=== PATIENT | male | born 1935 ===

== ENCOUNTER 2017-09-03 16:17 | Emergency (ER) | payer MEDICARE, OTHER ==
[2017-09-03] MEDS ORDERED: Albuterol 0.083% Inhal Sol (2.5 mg/3 mL) UD INH ONE (17:32)
--- NOTE | 2017-09-03 17:42 | ED PDOC ---
HPI: General Adult Time Seen by Provider: 09/03/17 16:40 Chief Complaint (Nursing): Chest Pain Chief Complaint (Provider): Dry Cough History Per: Patient History/Exam Limitations: no limitations Onset/Duration Of Symptoms: Days (x2 weeks) Current Symptoms Are (Timing): Still Present Additional Complaint(s): 81 year old male with a past medical history of diabetes, HTN, and hypercholesterolemia, who presents to the ED complaining of dry cough, body aches, and fever x2 weeks. Patient is also complaining of diarrhea x3 days. States he was seen by his PMD Dr. Meléndez on 09/01/17 and was diagnosed with bronchitis. Also states he was given prescriptions for Phenergan, Z-Zion, and Prednisone, but his cough is still present. PMD: Dr. Shaik Meléndez Past Medical History Reviewed: Historical Data, Nursing Documentation, Vital Signs Vital Signs: Last Vital Signs Temp 98.0 F 09/03/17 19:19 Pulse 71 09/03/17 19:19 Resp 21 09/03/17 19:19 BP 129/74 09/03/17 19:19 Pulse Ox 100 09/03/17 19:50 - Medical History PMH: Asthma, Bronchitis, COPD, HTN, Hypercholesterolemia, Peripheral Edema ( bilateral pedal and ankle edema), Pneumonia Denies: HIV (denies), Chronic Kidney Disease - Surgical History Surgical History: Cholecystectomy - Family History Family History: States: Unknown Family Hx - Social History Ex-Smoker (has not smoked in the last 12 months): Yes Alcohol: None Drugs: Denies - Home Medications Home Medications: Ambulatory Orders Medication Instructions Recorded Azithromycin [Zithromax] 250 mg PO DAILY #6 tab 06/15/16 Cholecalciferol (Vitamin D3) 50,000 unit PO QWK 06/15/16 [Vitamin D3] Fenofibrate,Micronized [Lofibra] 134 mg PO DAILY 06/15/16 Furosemide [Lasix] 40 mg PO DAILY 06/15/16 Losartan Potassium [Cozaar] 100 mg PO DAILY 06/15/16 MetFORMIN [glucOPHAGE] 1,000 mg PO BID 06/15/16 Montelukast [Singulair] 10 mg PO DAILY 06/15/16 Nebivolol [Bystolic] 10 mg PO DAILY 06/15/16 Pantoprazole Sodium [Protonix] 40 mg PO DAILY 06/15/16 Simvastatin [Zocor] 40 mg PO DAILY 06/15/16 Tamsulosin [Flomax] 0.4 mg PO DAILY 06/15/16 Albuterol HFA [Ventolin HFA 90 1 - 2 puff IH Q4H PRN #1 bottle 09/03/17 mcg/actuation (8 g)] - Allergies Allergies/Adverse Reactions: Allergies Allergy/AdvReac Type Severity Reaction Status Date / Time No Known Allergies Allergy Verified 09/03/17 16:30 Review of Systems ROS Statement: Except As Marked, All Systems Reviewed And Found Negative Constitutional: Positive for: Fever, Other (body aches) Respiratory: Positive for: Cough Physical Exam - Reviewed Nursing Documentation Reviewed: Yes Vital Signs Reviewed: Yes - Physical Exam Appears: Positive for: Non-toxic, No Acute Distress Head Exam: Positive for: ATRAUMATIC, NORMAL INSPECTION, NORMOCEPHALIC Skin: Positive for: Normal Color, Warm, Dry. Negative for: Rash Eye Exam: Positive for: EOMI, Normal appearance, PERRL ENT: Positive for: Normal ENT Inspection Neck: Positive for: Normal, Painless ROM, Supple Cardiovascular/Chest: Positive for: Regular Rate, Rhythm. Negative for: Murmur Respiratory: Positive for: Normal Breath Sounds. Negative for: Respiratory Distress Gastrointestinal/Abdominal: Positive for: Normal Exam, Bowel Sounds, Soft. Negative for: Tenderness Back: Positive for: Normal Inspection. Negative for: L CVA Tenderness, R CVA Tenderness, Vertebral Tenderness Extremity: Positive for: Normal ROM. Negative for: Pedal Edema, Deformity Neurologic/Psych: Positive for: Alert, Oriented (x3). Negative for: Motor/ Sensory Deficits - Laboratory Results Result Diagrams: 09/03/17 17:43 09/03/17 17:43 - ECG O2 Sat by Pulse Oximetry: 100 (RA) Pulse Ox Interpretation: Normal Medical Decision Making Medical Decision Making: Time: 17:32 Initial Impression: R/o pneumonia, r/o influenza Initial Plan: --CMP --Troponin I --CBC w/ differential --Chest X-Ray 2 views --Albuterol 2.5 mg INH --Peak flow pre/post treatment --Influenza A B --Reevaluation Time: 18:22 CHEST X-RAY FINDINGS: LINES AND TUBES: None. LUNG AND PLEURA: The lungs are well inflated and clear. HEART AND MEDIASTINUM: The heart is not enlarged. The hilar and mediastinal contours are within normal limits. SKELETAL STRUCTURES: The bony structures are within normal limits for the patient's age. VISUALIZED UPPER ABDOMEN: Normal. OTHER FINDINGS: None. IMPRESSION: No active pulmonary disease. Time: 19:30 Chest X-Ray, labs, and flu reviewed and found negative. Patient given Rx for Albuterol pump. Counseling was provided and all questions were answered regarding diagnosis and need for follow up with PMD in 2 days. There is agreement to discharge plan. Return if symptoms persist or worsen. Scribe Attestation: Documented by Raleigh Killian, acting as a scribe for Montana Alegre MD. Provider Scribe Attestation: All medical record entries made by the Scribe were at my direction and personally dictated by me. I have reviewed the chart and agree that the record accurately reflects my personal performance of the history, physical exam, medical decision making, and the department course for this patient. I have also personally directed, reviewed, and agree with the discharge instructions and disposition. Disposition - Clinical Impression Clinical Impression: Bronchitis - Patient ED Disposition Is Patient to be Admitted: No Counseled Patient/Family Regarding: Studies Performed, Diagnosis, Need For Followup, Rx Given - Disposition Disposition: Routine/Home Disposition Time: 18:30 Condition: IMPROVED Additional Instructions: follow up with your primary doctor in 1-2 days return to the ED with any worsening or concerning symptoms Prescriptions: Albuterol HFA [Ventolin HFA 90 mcg/actuation (8 g)] 1 - 2 puff IH Q4H PRN #1 bottle PRN Reason: Wheezing Instructions: Acute Bronchitis Forms: [employer] (Greek) Print Language: KINYARWANDA
[2017-09-03 17:50] LABS: BASO % 0.4 % (0.0-2.0); EOS # 0.3 K/uL (0.0-0.7); EOS % 3.8 % (0.0-4.0); HEMOGLOBIN 14.4 g/dL (12.0-18.0); LYMPH # 2.2 K/uL (1.0-4.3); LYMPH % 25.7 % (20.0-40.0); MEAN CELL VOLUME 86.9 fl (80.0-94.0); MEAN CORPUSCULAR HEMOGLOBIN 29.7 pg (27.0-31.0); MEAN CORPUSCULAR HGB CONC 34.1 g/dL (33.0-37.0); MEAN PLATELET VOLUME 7.2 fl (7.2-11.7); MONO # 0.5 K/uL (0.0-0.8); MONO % 6.1 % (0.0-10.0); NEUT # 5.4 K/uL (1.8-7.0); RBC 4.85 Mil/uL (4.40-5.90); RED CELL DISTRIBUTION WIDTH 15.5 % (11.5-14.5); WHITE BLOOD COUNT 8.5 K/uL (4.8-10.8)
[2017-09-03 18:03] LABS: ALB/GLOB RATIO 1.3 (1.0-2.1); ALBUMIN 4.3 g/dL (3.5-5.0); ALT/SGPT 67 U/L (21-72); AST/SGOT 69 U/L (17-59); BLOOD UREA NITROGEN 22 mg/dl (9-20); CALCIUM 9.2 mg/dL (8.4-10.2); GFR AFRICAN-AMERICAN 59; GFR NON-AFRICAN AMERICAN 49
--- NOTE | 2017-09-03 18:24 | RAD ---
HISTORY: COMPARISON: 06/15/2016. TECHNIQUE: Chest PA and lateral FINDINGS: LINES AND TUBES: None. LUNG AND PLEURA: The lungs are well inflated and clear. HEART AND MEDIASTINUM: The heart is not enlarged. The hilar and mediastinal contours are within normal limits. SKELETAL STRUCTURES: The bony structures are within normal limits for the patient's age. VISUALIZED UPPER ABDOMEN: Normal. OTHER FINDINGS: None. IMPRESSION: No active pulmonary disease.
[2017-09-03 19:24] VITALS: BP 129/74; PULSE 71; RESP 21; TEMP 98
[2017-09-03 19:43] VITALS: O2SAT 100
== END 2017-09-03 19:36 | disposition home or self-care (01) ==
LOC: H.ER 16:17
DX: J40 Bronchitis, not specified as acute or chronic (principal); E11.22 Type 2 diabetes mellitus with diabetic chronic kidney disease; E78.00 Pure hypercholesterolemia, unspecified; J44.0 Chronic obstructive pulmonary disease with (acute) lower respiratory infection; Z79.84 Long term (current) use of oral hypoglycemic drugs; I12.9 Hypertensive chronic kidney disease with stage 1 through stage 4 chronic kidney disease, or unspecified chronic kidney disease

== ENCOUNTER 2018-01-05 16:11 | Emergency (ER) | payer MEDICARE, OTHER ==
[2018-01-05] MEDS ORDERED: Albuterol-Ipratrop 3 mg / 0.5 (3 ml) UD INH STA (16:48)
[2018-01-05] MEDS ORDERED: Insulin Regular 100 units/ml IVP ONE (16:48)
--- NOTE | 2018-01-05 16:54 | ED PDOC ---
HPI: SOB/CHF/COPD Time Seen by Provider: 01/05/18 16:27 Chief Complaint (Nursing): Chest Pain Chief Complaint (Provider): chest pain, cough, SOB History Per: Patient, Automatic Door Mechanic (Jimbo Parker) History/Exam Limitations: no limitations Onset/Duration Of Symptoms: Days (2 weeks), Gradual Initiating Event: Upper Respiratory Illness Quality: Tightness Exacerbating Factor(s): Exertion, Coughing Current Respiratory Medications: See Home Med List, Albuterol, Prednisone Location Of Discomfort (Image): 1 - pain SOB cough Associated Symptoms: Chills, Heart Racing, Dizziness Additional Complaint(s): 82yo male sent from Dr Linares office for persistent cough, SOB accompanied by chest discomfort despite albuterol, doxycycline and prednisone since December 29. Denies orthopnea, edema, syncope or sick contacts. Past Medical History Reviewed: Historical Data, Nursing Documentation, Vital Signs Vital Signs: Last Vital Signs Temp 98.0 F 01/05/18 18:35 Pulse 82 01/05/18 18:35 Resp 16 01/05/18 18:35 BP 122/67 01/05/18 18:35 Pulse Ox 98 01/05/18 18:35 - Medical History PMH: Asthma, Bronchitis, COPD, HTN, Hypercholesterolemia, Peripheral Edema ( bilateral pedal and ankle edema), Pneumonia Denies: HIV (denies), Chronic Kidney Disease - Surgical History Surgical History: Cholecystectomy - Family History Family History: States: Unknown Family Hx - Home Medications Home Medications: Ambulatory Orders Medication Instructions Recorded Azithromycin [Zithromax] 250 mg PO DAILY #6 tab 06/15/16 Cholecalciferol (Vitamin D3) 50,000 unit PO QWK 06/15/16 [Vitamin D3] Fenofibrate,Micronized [Lofibra] 134 mg PO DAILY 06/15/16 Furosemide [Lasix] 40 mg PO DAILY 06/15/16 Losartan Potassium [Cozaar] 100 mg PO DAILY 06/15/16 MetFORMIN [glucOPHAGE] 1,000 mg PO BID 06/15/16 Montelukast [Singulair] 10 mg PO DAILY 06/15/16 Nebivolol [Bystolic] 10 mg PO DAILY 06/15/16 Pantoprazole Sodium [Protonix] 40 mg PO DAILY 06/15/16 Simvastatin [Zocor] 40 mg PO DAILY 06/15/16 Tamsulosin [Flomax] 0.4 mg PO DAILY 06/15/16 Albuterol HFA [Ventolin HFA 90 1 - 2 puff IH Q4H PRN #1 bottle 09/03/17 mcg/actuation (8 g)] - Allergies Allergies/Adverse Reactions: Allergies Allergy/AdvReac Type Severity Reaction Status Date / Time No Known Allergies Allergy Verified 01/05/18 16:22 Review of Systems ROS Statement: Except As Marked, All Systems Reviewed And Found Negative Constitutional: Positive for: Chills, Weakness, Malaise Cardiovascular: Positive for: Chest Pain, Palpitations, Light Headedness. Negative for: Paroxysmal Noc. Dyspnea, Edema Respiratory: Positive for: Cough, Shortness of Breath, SOB with Exertion, Wheezing. Negative for: Hemoptysis Gastrointestinal: Negative for: Nausea, Vomiting, Abdominal Pain Genitourinary Male: Negative for: Dysuria Musculoskeletal: Negative for: Neck Pain Skin: Negative for: Rash, Lesions, Jaundice Neurological: Positive for: Dizziness. Negative for: Weakness, Numbness, Change in Speech Psych: Negative for: Suicidal ideation Physical Exam - Reviewed Nursing Documentation Reviewed: Yes Vital Signs Reviewed: Yes - Physical Exam Appears: Positive for: Well, Non-toxic, No Acute Distress Head Exam: Positive for: ATRAUMATIC, NORMAL INSPECTION, NORMOCEPHALIC Skin: Positive for: Normal Color, Warm, DRY Eye Exam: Positive for: EOMI, Normal appearance, PERRL ENT: Positive for: Normal ENT Inspection Neck: Positive for: Normal, Painless ROM Cardiovascular/Chest: Positive for: Regular Rate, Rhythm Respiratory: Positive for: Decreased Breath Sounds. Negative for: Respiratory Distress Gastrointestinal/Abdominal: Positive for: Normal Exam, Soft. Negative for: Tenderness, Guarding Back: Positive for: Normal Inspection Extremity: Positive for: Normal ROM Neurologic/Psych: Positive for: Alert, Oriented. Negative for: Motor/Sensory Deficits - Laboratory Results Result Diagrams: 01/05/18 17:10 01/05/18 17:10 - ECG O2 Sat by Pulse Oximetry: 96 Pulse Ox Interpretation: Normal Medical Decision Making Medical Decision Making: workup for respiratory/ chest complaints. Accucheck revealed hyperglycemia thus insulin therapy initiated, is on prednisone already labs reviewed WBC normal trop neg BNP neg Accession No. : [id number] Patient Name / ID : BO WEBSTER / [id number] Exam Date : 01/05/2018 17:08:51 ( Approved ) Study Comment : Sex / Age : M / 82Y Creator : Chance Hernandez MD Dictator : Chance Hernandez MD Gallery Host : Dietetic Technician Registered : Chance Hernandez MD Approver2 : Report Date : 01/05/2018 18:08:48 My Comment : HISTORY: chest pain/ r/o infiltrate COMPARISON: 09/03/2017 TECHNIQUE: Chest PA and lateral FINDINGS: LUNGS: No active pulmonary disease. PLEURA: No significant pleural effusion identified. No pneumothorax apparent. CARDIOVASCULAR: No radiographic findings to suggest acute or significant cardiovascular disease. OSSEOUS STRUCTURES: No significant abnormalities. VISUALIZED UPPER ABDOMEN: Normal. OTHER FINDINGS: None. IMPRESSION: No active disease. No significant interval change compared to the prior examination(s). d/w PMD Dr Linares, recommends discharge to followup in office in 3-4 days/. Results explained in vietnamese. Increase oral hydration. Return to ER for any worse or new symptoms. Improved in ED, resp pattern nonlabored, lungs clear, vitals stable Disposition - Clinical Impression Clinical Impression: Asthma exacerbation - Patient ED Disposition Is Patient to be Admitted: No Counseled Patient/Family Regarding: Studies Performed, Diagnosis, Need For Followup - Disposition Referrals: Shaik Meléndez MD [Family Provider] - Disposition: Routine/Home Disposition Time: 18:55 Condition: STABLE Additional Instructions: Return to ER for any worse or new symptoms/ See Dr Linares in 3-4 days. Check sugars frequently. Drink plenty of fluids. Continue medications as prior prescribed. Instructions: Asthma in Adults, Acute Bronchitis Forms: [employer] (Lao) Print Language: SERBIAN
[2018-01-05 17:23] LABS: BASO % 0.4 % (0.0-2.0); EOS # 0.3 K/uL (0.0-0.7); EOS % 3.2 % (0.0-4.0); HEMOGLOBIN 14.3 g/dL (12.0-18.0); LYMPH # 1.4 K/uL (1.0-4.3); MEAN CELL VOLUME 88.5 fl (80.0-94.0); MEAN CORPUSCULAR HEMOGLOBIN 29.3 pg (27.0-31.0); MEAN CORPUSCULAR HGB CONC 33.2 g/dL (33.0-37.0); MEAN PLATELET VOLUME 8.6 fl (7.2-11.7); MONO # 0.5 K/uL (0.0-0.8); MONO % 6.1 % (0.0-10.0); NEUT # 6.1 K/uL (1.8-7.0); NEUT % 73.3 % (50.0-75.0); NRBC % 0.1 % (0.0-0.0); RBC 4.86 Mil/uL (4.40-5.90); RED CELL DISTRIBUTION WIDTH 15.2 % (11.5-14.5); WHITE BLOOD COUNT 8.3 K/uL (4.8-10.8)
[2018-01-05 17:34] LABS: ALB/GLOB RATIO 1.4 (1.0-2.1); ALBUMIN 4.4 g/dL (3.5-5.0); ALT/SGPT 50 U/L (21-72); AST/SGOT 42 U/L (17-59); BLOOD UREA NITROGEN 43 mg/dl (9-20); GFR AFRICAN-AMERICAN 54; GFR NON-AFRICAN AMERICAN 45
[2018-01-05] MEDS ORDERED: Albuterol-Ipratrop 3 mg / 0.5 (3 ml) UD ONE (17:37)
[2018-01-05] MEDS ORDERED: Insulin Regular 100 units/ml ONE (17:39)
[2018-01-05 17:45] LABS: B-TYPE NATRIURETIC PEPTIDE 263 pg/ml (0-900)
--- NOTE | 2018-01-05 18:10 | RAD ---
HISTORY: chest pain/ r/o infiltrate COMPARISON: 09/03/2017 TECHNIQUE: Chest PA and lateral FINDINGS: LUNGS: No active pulmonary disease. PLEURA: No significant pleural effusion identified. No pneumothorax apparent. CARDIOVASCULAR: No radiographic findings to suggest acute or significant cardiovascular disease. OSSEOUS STRUCTURES: No significant abnormalities. VISUALIZED UPPER ABDOMEN: Normal. OTHER FINDINGS: None. IMPRESSION: No active disease. No significant interval change compared to the prior examination(s).
[2018-01-06 07:34] VITALS: BP 122/67; PULSE 82; RESP 16; TEMP 98
--- NOTE | 2018-01-06 08:05 | CARD ---
APPROVED REPORT EKG Measurement Heart [id number] <Conclusion> Normal sinus rhythm Normal ECG
[2018-01-06 13:35] VITALS: O2SAT 96
== END 2018-01-05 19:00 | disposition home or self-care (01) ==
LOC: H.ER 16:11
DX: J45.901 Unspecified asthma with (acute) exacerbation (principal); E78.00 Pure hypercholesterolemia, unspecified; I10 Essential (primary) hypertension; Z79.84 Long term (current) use of oral hypoglycemic drugs; J44.9 Chronic obstructive pulmonary disease, unspecified

== ENCOUNTER 2018-11-01 23:18 | Observation (INO) | payer MEDICARE, OTHER ==
[2018-11-02] MEDS ORDERED: Nitroglycerin 2% Ointment Foilpak UD TOP STA (00:59)
[2018-11-02 01:02] LABS: BASO # 0.1 K/uL (0.0-0.2); BASO % 0.9 % (0.0-2.0); EOS # 0.3 K/uL (0.0-0.7); EOS % 5.7 % (0.0-4.0); HEMOGLOBIN 12.3 g/dL (12.0-18.0); LYMPH # 1.4 K/uL (1.0-4.3); MEAN CELL VOLUME 85.3 fl (80.0-94.0); MEAN CORPUSCULAR HEMOGLOBIN 28.2 pg (27.0-31.0); MEAN PLATELET VOLUME 6.9 fl (7.2-11.7); MONO # 0.5 K/uL (0.0-0.8); MONO % 9.2 % (0.0-10.0); NEUT # 3.4 K/uL (1.8-7.0); NEUT % 60.2 % (50.0-75.0); NRBC % 0.1 % (0.0-0.0); RBC 4.35 Mil/uL (4.40-5.90); RED CELL DISTRIBUTION WIDTH 16.1 % (11.5-14.5); WHITE BLOOD COUNT 5.7 K/uL (4.8-10.8)
[2018-11-02 01:12] LABS: ALB/GLOB RATIO 1.4 (1.0-2.1); ALBUMIN 4.2 g/dL (3.5-5.0); ALT/SGPT 28 U/L (21-72); AST/SGOT 27 U/L (17-59); BLOOD UREA NITROGEN 28 mg/dl (9-20); GFR NON-AFRICAN AMERICAN 53
--- NOTE | 2018-11-02 01:14 | ED PDOC ---
HPI: Chest Pain Time Seen by Provider: 11/02/18 00:15 Chief Complaint (Nursing): Chest Pain Chief Complaint (Provider): Chest pain History Per: Patient History/Exam Limitations: no limitations Onset/Duration Of Symptoms: Days (2x) Current Symptoms Are (Timing): Still Present Severity: Moderate Additional Complaint(s): 82 year old male with a past medical history of hypertension, diabetes, and dyslipidemia presents to the ED for an evaluation of chest pain ongoing for 2x days and a rash for the past 3x days. Patient reports having a burning sensation to his right arm for the past 1x week, and 3x days ago he noticed lesions to the right arm with more distribution of burning. Patient reports having a dry cough and abdominal distension. Patient denies having fevers, vomiting, and diarrhea. PMD: Reza Diaz Jr, MD Past Medical History Reviewed: Historical Data, Nursing Documentation, Vital Signs Vital Signs: Last Vital Signs Temp 98.2 F 11/01/18 23:30 Pulse 69 11/01/18 23:30 Resp 18 11/01/18 23:30 BP 146/71 11/01/18 23:30 Pulse Ox 98 11/01/18 23:30 MASOUD Report Viewed: Yes Primary Care Physician: Reza Diaz Jr, MD - Medical History PMH: Asthma, Bronchitis, COPD, Diabetes, HTN, Hypercholesterolemia, Peripheral Edema (bilateral pedal and ankle edema), Pneumonia Denies: HIV (denies), Chronic Kidney Disease Other PMH: dyslipidemia - Surgical History Surgical History: Cholecystectomy - Family History Family History: States: No Known Family Hx - Social History Current smoker - smoking cessation education provided: No Ex-Smoker (has not smoked in the last 12 months): Yes Alcohol: None Drugs: Denies - Home Medications Home Medications: Ambulatory Orders Medication Instructions Recorded Fenofibrate,Micronized [Lofibra] 134 mg PO DAILY 06/15/16 Furosemide [Lasix] 40 mg PO DAILY 06/15/16 Losartan Potassium [Cozaar] 100 mg PO DAILY 06/15/16 MetFORMIN [glucOPHAGE] 1,000 mg PO DAILY 06/15/16 Montelukast [Singulair] 10 mg PO DAILY 06/15/16 Nebivolol [Bystolic] 10 mg PO DAILY 06/15/16 Pantoprazole Sodium [Protonix] 40 mg PO DAILY 06/15/16 Simvastatin [Zocor] 40 mg PO HS 12/04/16 Tamsulosin [Flomax] 0.4 mg PO DAILY 06/15/16 Meloxicam [Mobic] 15 mg PO DAILY 11/02/18 Memantine HCl 5 mg PO DAILY 11/02/18 Semaglutide [Ozempic] 0.25 mg SC QWK 11/02/18 - Allergies Allergies/Adverse Reactions: Allergies Allergy/AdvReac Type Severity Reaction Status Date / Time No Known Allergies Allergy Verified 11/01/18 23:27 Review of Systems ROS Statement: Except As Marked, All Systems Reviewed And Found Negative Constitutional: Negative for: Fever Cardiovascular: Positive for: Chest Pain Respiratory: Positive for: Cough (dry) Gastrointestinal: Positive for: Other (abdominal distension). Negative for: Vomiting, Diarrhea Skin: Positive for: Rash (burning sensation and lesions to the right arm) Physical Exam - Reviewed Nursing Documentation Reviewed: Yes Vital Signs Reviewed: Yes - Physical Exam Appears: Positive for: Well, Non-toxic, No Acute Distress Head Exam: Positive for: ATRAUMATIC, NORMOCEPHALIC Skin: Positive for: Normal Color, Warm, Dry Eye Exam: Positive for: Normal appearance Neck: Positive for: Normal Cardiovascular/Chest: Positive for: Regular Rate, Rhythm Respiratory: Positive for: Normal Breath Sounds Gastrointestinal/Abdominal: Positive for: Normal Exam, Soft. Negative for: Tenderness Extremity: Positive for: Swelling (1+ edema to bilateral lower extremities), Other (vesicular lesions in dermatomal distribution to right upper extremity.) Neurological/Psych: Positive for: Awake, Alert, Oriented (3x) - Laboratory Results Result Diagrams: 11/02/18 00:59 11/02/18 00:59 - ECG O2 Sat by Pulse Oximetry: 98 (RA) Pulse Ox Interpretation: Normal Medical Decision Making Medical Decision Makin:15 Initial impression: 82 year old male with chest pain. Clinical findings consistent with zoster shingles. Initial plan: * EKG * BNP * CMP * troponin * CBC with differential * aspirin chewable 324 mg PO * nitro-bid 2% oint 1 ea top * zovirax 800 mg PO TID * reevaluation 1:42 Labs reviewed and show no clinically significant abnormalities. Patient placed on observation for chest pain. Case referred to Arnie Keys (SUPERVISOR KEYMODULE ASSEMBLY for Dr.Do villegas). ScribeAttestation: Documented byLeandra Aguilar, acting as a scribe for John Haji MD. Provider ScribeAttestation: All medical record entries made by the Scribe were at my direction and personally dictated by me. I have reviewed the chart and agree that the record accurately reflects my personal performance of the history, physical exam, medical decision making, and the department course for this patient. I have also personally directed, reviewed, and agree with the discharge instructions and disposition. Disposition - Clinical Impression Clinical Impression: Shingles, Chest pain - Disposition Disposition Time: 01:42 Condition: STABLE
[2018-11-02] MEDS ORDERED: Nitroglycerin 2% Ointment Foilpak UD TOP ONE (01:21)
[2018-11-02 01:23] LABS: B-TYPE NATRIURETIC PEPTIDE 242 pg/ml (0-900)
[2018-11-02] MEDS: Pantoprazole 40 mg EC Tab PO SCH (08:30)
[2018-11-02] MEDS: Enoxaparin 40 mg Syringe SC SCH (08:31)
--- NOTE | 2018-11-02 10:05 | CARD ---
APPROVED REPORT Date of service: 11/01/2018 EKG Measurement Heart [id number] <Conclusion> Normal sinus rhythm Minimal voltage criteria for LVH, may be normal variant Borderline ECG
--- NOTE | 2018-11-02 11:03 | RAD ---
Date of service: 11/02/2018 HISTORY: chest pain COMPARISON: 01/05/2018 TECHNIQUE: 1 view obtained. FINDINGS: LUNGS: No active pulmonary disease. PLEURA: No significant pleural effusion identified, no pneumothorax apparent. CARDIOVASCULAR: No aortic atherosclerotic calcification present. Normal cardiac size. No pulmonary vascular congestion. OSSEOUS STRUCTURES: No significant abnormalities. VISUALIZED UPPER ABDOMEN: Normal. OTHER FINDINGS: None. IMPRESSION: No active disease.
[2018-11-02] MEDS: Acyclovir 5% OINT 15 APPLIC/15 GM EXT SCH ×4 (14:09→21:32)
--- NOTE | 2018-11-02 18:44 | CARD ---
APPROVED REPORT Date of service: 11/02/2018 EKG Measurement Heart [id number] <Conclusion> Normal sinus rhythm Normal Electrocardiogram
[2018-11-02 19:28] LABS: INR 1.1; PROTHROMBIN TIME 12.1 Seconds (9.8-13.1)
[2018-11-02 19:31] LABS: PARTIAL THROMBOPLASTIN TIME 35.1 Seconds (25.6-37.1)
[2018-11-02 19:56] LABS: D DIMER < 200 ng/mlDDU (0-230)
[2018-11-03] MEDS: Acyclovir 5% OINT 15 APPLIC/15 GM EXT SCH ×6 (01:57→21:38)
--- NOTE | 2018-11-03 02:42 | CP.PCM.HP ---
History of Present Illness - History of Present Illness History of Present Illness: HPI: 82 y/o male with a PMH of HTN, hyperlipidemia and DM presented to the ED for evaluation of chest pain and right arm rash. As per pt, the chest pain has been ongoing for 2 days with no resolution of symptoms. Troponin x1 so far is negative. Initial EKG was unremarkable. Cardiology consult was added given the patients co-morbidities. PMH: Asthma, Bronchitis, COPD, DM2, HTN, hyperlipidemia, peripheral edema to BLE, PNA. PSH: Cholecystectomy. Allergies: NDKA. Subjective Review of Systems: Reviewed and no additional remarkable complaints noted. Objective Vital Signs Stable Appears: Non-toxic, No Acute Distress. Head Exam: NORMAL INSPECTION, normocephalic. Eye Exam: Normal eye inspection, EOMI, PERRLA. Respiratory Exam: NORMAL BREATHING PATTERN, breath sounds clear to auscultation. Cardiovascular Exam: S1, S2. RRR. GI & Abdominal Exam: Round, soft, non-tender, non-distended. Neurological Exam: Alert, Awake, Oriented x3. Psychiatric exam: Normal Affect, Normal Mood, Calm and cooperative. Skin Exam: Herpetic Rash to right arm. Assessment/Impression/Plan: 1.) Chest Pain -Troponin x 1 negative. 2 more sets ordered. -Cardiology consult input appreciated. -Initial EKG showed normal sinus rhythm, no signs of DC. Repeat EKG ordered 8 hours after. -ECHO ordered. 2.) Herpes Zoster -Shingles rash noted to Right arm. -Started on Zovirax 800 TID, as well as Zovirax ointment. -Continue current tx. Present on Admission - Present on Admission Any Indicators Present on Admission: No Past Patient History - Past Medical History & Family History Past Medical History?: Yes - Past Social History Alcohol: None Drugs: Denies - CARDIAC Hx Hypercholesterolemia: Yes Hx Hypertension: Yes Hx Peripheral Edema: Yes (bilateral pedal and ankle edema) - PULMONARY Hx Asthma: Yes Hx Bronchitis: Yes Hx Chronic Obstructive Pulmonary Disease (COPD): Yes Hx Pneumonia: Yes - NEUROLOGICAL Hx Neurological Disorder: No - HEENT Hx HEENT Problems: No - RENAL Hx Chronic Kidney Disease: No - ENDOCRINE/METABOLIC Hx Endocrine Disorders: Yes - HEMATOLOGICAL/ONCOLOGICAL Hx Human Immunodeficiency Virus (HIV): No (denies) - INTEGUMENTARY Hx Dermatological Problems: No - MUSCULOSKELETAL/RHEUMATOLOGICAL Hx Musculoskeletal Disorders: No Hx Falls: Yes - GASTROINTESTINAL Hx Gastrointestinal Disorders: No - GENITOURINARY/GYNECOLOGICAL Hx Genitourinary Disorders: No - PSYCHIATRIC Hx Psychophysiologic Disorder: No Hx Substance Use: No - SURGICAL HISTORY Hx Cholecystectomy: Yes - ANESTHESIA Hx Anesthesia: Yes Hx Anesthesia Reactions: No Hx Malignant Hyperthermia: No Meds Allergies/Adverse Reactions: Allergies Allergy/AdvReac Type Severity Reaction Status Date / Time No Known Allergies Allergy Verified 11/01/18 23:27 Results - Vital Signs Recent Vital Signs: Last Vital Signs Temp 97.8 F 11/03/18 00:58 Pulse 70 11/03/18 00:58 Resp 16 11/03/18 00:58 BP 135/82 11/03/18 00:58 Pulse Ox 96 11/03/18 00:58 - Labs Result Diagrams: 11/02/18 00:59 11/02/18 00:59 Labs: Laboratory Results - last 24 hr 11/02/18 11/02/18 11/02/18 06:59 09:45 10:47 PT INR APTT D-Dimer, Quantitative POC Glucose (mg/dL) 118 H 177 H Troponin I < 0.0120 11/02/18 11/02/18 11/02/18 15:54 16:15 19:06 PT 12.1 INR 1.1 APTT 35.1 D-Dimer, Quantitative < 200 POC Glucose (mg/dL) 138 H Troponin I < 0.0120 11/02/18 22:32 PT INR APTT D-Dimer, Quantitative POC Glucose (mg/dL) 131 H Troponin I Assessment & Plan (1) Chest pain Status: Acute (2) Shingles Status: Acute
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
[2018-11-03] MEDS: Bisacodyl 5mg EC Tab PO SCH (09:37)
[2018-11-03] MEDS: Pantoprazole 40 mg EC Tab PO SCH (09:40)
[2018-11-03] MEDS: Enoxaparin 40 mg Syringe SC SCH (09:41)
--- NOTE | 2018-11-03 10:26 | US ---
Date of service: 11/03/2018 HISTORY: r/o gall stones COMPARISON: None. TECHNIQUE: Sonographic evaluation of the right upper quadrant of the abdomen. FINDINGS: LIVER: Measures 17.4 cm in length. Mild diffuse increased echogenicity echogenicity of the liver parenchyma. No mass. No intrahepatic bile duct dilatation. GALLBLADDER: Nonvisualized consistent with prior gallbladder removal (this is per technologist's note from the patient's provided history). Limited visualization due to large body habitus as well. COMMON BILE DUCT: Measures 5.7 mm. No stones. No dilatation. PANCREAS: Limited visualization due to obscuring bowel gas. RIGHT KIDNEY: Measures 10.9 x 7.1 x 5.4 cm in length. Normal echogenicity. No calculus, or hydronephrosis. In the midpole a intra cortical day slightly exophytic complex cystic mass is suggested this may represent a single cyst with a thin septation between it. It may represent 2 contiguous cysts. The entire cystic structure measures 2.6 x 2.9 x 2.9 cm in size. No comparisons are available to assess status stability. The patient's outside studies ease to be helpful in ensuring stability of this appearance. AORTA: No gross aneurysmal dilatation. Limited evaluation due to obscuring bowel gas. IVC: Limited visualization due to obscuring bowel gas. OTHER FINDINGS: None . IMPRESSION: Gallbladder not visualized compatible with per patient its prior removal/cholecystectomy status. No dilated ducts appreciated. Minimal hepatomegaly. Mild diffuse hepatic echogenicity compatible with hepatic steatosis. Other diffuse hepatic parenchymal pathology is not excluded. Probably benign in the septated complex cystic right renal mass of unknown chronicity. Please see above comments.
--- NOTE | 2018-11-03 19:59 | CARD ---
APPROVED REPORT Date of service: 11/03/2018 EXAM: Two-dimensional and M-mode echocardiogram with Doppler and color Doppler. Other Information Quality : GoodRhythm : NSR INDICATION Chest Pain 2D DIMENSIONS IVSd1.41 (0.7-1.1cm)LVDd4.66 (3.9-5.9cm) LVOT Diameter2.15 (1.8-2.4cm)PWd1.15 (0.7-1.1cm) IVSs1.75 (0.8-1.2cm)LVDs3.19 (2.5-4.0cm) FS (%) 31.4 %PWs1.41 (0.8-1.2cm) M-Mode DIMENSIONS Left Atrium (MM)5.36 (2.5-4.0cm)IVSd1.42 (0.7-1.1cm) Aortic Root3.47 (2.2-3.7cm)LVDd6.15 (4.0-5.6cm) Aortic Cusp Exc.1.32 (1.5-2.0cm)PWd1.06 (0.7-1.1cm) IVSs1.65 cmFS (%) 42 % LVDs3.57 (2.0-3.8cm)PWs1.36 cm Aortic Valve AoV Peak Uwwuvwbp444.7cm/sAoV VTI44.5cmAO Peak GR.19mmHg LVOT Peak Qljslztc75.0cm/sLVOT VTI18.43cmAO Mean GR.11mmHg ANDREZ (VMAX)0.45ye0PZG (VTI)0.50ld3IE P 1/2 Wdkv513me Mitral Valve MV E Ricigrpu32.4cm/sMV DECEL ASUA509gnIS A Qlqwxqzy10.7cm/s MV BJA87ckZ/A ratio0.8MVA (PHT)3.24cm2 TDI Lateral E' Peak V5.70cm/sMedial E' Peak V5.13cm/sE/Lateral E'13.9 E/Medial E'15.5 Tricuspid Valve TR Peak Otgkgdhv607av/sRAP UTVGFXTK09yxAcQA Peak Gr.20mmHg [id number] LEFT VENTRICLE The left ventricle is normal size. There is normal left ventricular wall thickness. The left ventricular systolic function is normal. The estimated ejection fraction is 55-60% No regional wall motion abnormalities noted.. Transmitral Doppler flow pattern is Grade I-abnormal relaxation pattern. No left ventricle thrombus noted on this study. There is no ventricular septal defect visualized. There is no left ventricular aneurysm. There is no mass noted in the left ventricle. RIGHT VENTRICLE The right ventricle is normal size. There is normal right ventricular wall thickness. The right ventricular systolic function is normal. ATRIA The left atrium is moderately dilated. The right atrium size is normal. The interatrial septum is intact with no evidence for an atrial septal defect. AORTIC VALVE The aortic valve is normal in structure. Moderate aortic regurgitation is present. There is no aortic valvular stenosis. There is no aortic valvular vegetation. MITRAL VALVE The mitral valve is normal in structure. There is no evidence of mitral valve prolapse. There is no mitral valve stenosis. There is mild mitral valve regurgitation noted. TRICUSPID VALVE The tricuspid valve is normal in structure. There is mild tricuspid valve regurgitation noted. RVSP is calculated at 25 mm Hg. There is no tricuspid valve prolapse or vegetation. There is no tricuspid valve stenosis. PULMONIC VALVE The pulmonary valve is normal in structure. There is no pulmonic valvular regurgitation. There is no pulmonic valvular stenosis. GREAT VESSELS The aortic root is normal in size. The ascending aorta is normal in size. The pulmonary artery is normal. The IVC is normal in size and collapses >50% with inspiration. PERICARDIAL EFFUSION There is no pericardial effusion. There is no pleural effusion. <Conclusion> The estimated ejection fraction is 55-60% Transmitral Doppler flow pattern is Grade I-abnormal relaxation pattern. The left atrium is moderately dilated. Moderate aortic regurgitation is present. There is mild mitral valve regurgitation noted. There is mild tricuspid valve regurgitation noted. RVSP is calculated at 25 mm Hg.
--- NOTE | 2018-11-03 21:53 | PN ---
DATE: 11/03/2018 SUBJECTIVE: The patient denies any chest pain. No reported arrhythmia. PHYSICAL EXAMINATION: VITAL SIGNS: Blood pressure 127/78, heart rate 75, temperature 97.9, respirations 20. HEENT: Normocephalic. CHEST: Clear. HEART: S1, S2 regular. EXTREMITIES: Right arm rash, suspicious of shingles. LABORATORY DATA: Total of three sets of troponins are negative. Gallbladder ultrasound revealed cholecystectomy status. Minimal hepatomegaly, mild diffuse hepatic echogenicity compatible with hepatic steatosis. Other diffuse hepatic parenchymal pathology is not excluded. Probably benign and septated complex cystic right renal mass of unknown chronicity. ASSESSMENT: 1. Atypical chest pain. Myocardial infarction is ruled out. 2. Right cystic renal mass. 3. Hepatic steatosis, hepatic parenchymal disease cannot be completely excluded. 4. Diabetes mellitus. 5. Hypertension. 6. Hyperlipidemia. 7. Herpes zoster of right arm. RECOMMENDATIONS: Continue aspirin 81 mg once a day, Cozaar at 100 mg once a day, daily, Lasix 40 mg p.o. once a day, Lipitor at 20 mg once a day, Lopressor 50 mg twice a day, Lovenox 40 mg subcutaneous once a day, Tricor 145 mg once a day. Obtain CT scan of the abdomen and pelvis to further evaluate the renal mass. I will review the echocardiographic study performed today. Brett Martin MD
--- NOTE | 2018-11-04 00:59 | CP.PCM.PN ---
Subjective - Date & Time of Evaluation Date of Evaluation: 11/03/18 Time of Evaluation: 09:30 - Subjective Subjective: Pt seen and assessed at bedside. No new changes overnight. At this time, ECHO and gall bladder results are pending. Cardiology is on board for eval of chest pain. Subjective Review of Systems: Reviewed and no additional remarkable complaints noted. Objective Vital Signs Stable Appears: Non-toxic, No Acute Distress. Head Exam: NORMAL INSPECTION, normocephalic. Eye Exam: Normal eye inspection, EOMI, PERRLA. Respiratory Exam: NORMAL BREATHING PATTERN, breath sounds clear to auscultation. Cardiovascular Exam: S1, S2. RRR. GI & Abdominal Exam: Soft, non-tender, non-distended. Neurological Exam: Alert, Awake, Oriented x3. Psychiatric exam: Normal Affect, Normal Mood, Calm and cooperative. Skin Exam: Herpetic Rash to right arm. Assessment/Impression/Plan: 1.) Chest Pain -Troponin x 3 negative. -EKG unremarkable. -Cardiology consult input appreciated. -Pending ECHOcardiogram results. -Pending gallbladder ultrasound results, as ordered by Nephrology. -For possible discharge if results show no acute findings. 2.) Herpes Zoster -Shingles rash noted to Right arm, improving. Maintained on Zovirax PO + ointment. -Continue current tx. Objective - Vital Signs/Intake and Output Vital Signs (last 24 hours): Temp Pulse Resp BP Pulse Ox 97.5 F L 74 16 129/78 95 11/04/18 00:39 11/04/18 00:39 11/04/18 00:39 11/04/18 00:39 11/04/18 00:39 - Medications Medications: Current Medications Acyclovir (Zovirax) 800 mg PO TID [facility]; Protocol Last Admin: 11/03/18 17:52 Dose: 800 mg Acyclovir (Zovirax 5% Oint) 1 applic EXT Q3 [facility] Last Admin: 11/03/18 21:38 Dose: 1 applic Aspirin (Aspirin Chewable) 81 mg PO DAILY [facility] Last Admin: 11/03/18 09:41 Dose: 81 mg Atorvastatin Calcium (Lipitor) 20 mg PO HS [facility] Last Admin: 11/03/18 21:38 Dose: 20 mg Bisacodyl (Dulcolax) 5 mg PO DAILY [facility] Last Admin: 11/03/18 09:37 Dose: 5 mg Enoxaparin Sodium (Lovenox) 40 mg SC DAILY [facility]; Protocol Last Admin: 11/03/18 09:41 Dose: 40 mg Fenofibrate (Tricor) 145 mg PO DAILY [facility] Last Admin: 11/03/18 09:38 Dose: 145 mg Furosemide (Lasix) 40 mg PO DAILY [facility] Last Admin: 11/03/18 09:38 Dose: 40 mg Gabapentin (Neurontin) 100 mg PO TID [facility] Last Admin: 11/03/18 16:12 Dose: 100 mg Losartan Potassium (Cozaar) 100 mg PO DAILY [facility] Last Admin: 11/03/18 09:40 Dose: 100 mg Memantine (Namenda) 5 mg PO DAILY [facility] Last Admin: 11/03/18 09:41 Dose: 5 mg Metformin HCl (Glucophage) 1,000 mg PO DAILY [facility] Last Admin: 11/03/18 09:38 Dose: 1,000 mg Metoprolol Tartrate (Lopressor) 50 mg PO BID [facility] Last Admin: 11/03/18 16:11 Dose: 50 mg Montelukast Sodium (Singulair) 10 mg PO DAILY [facility] Last Admin: 11/03/18 09:37 Dose: 10 mg Pantoprazole Sodium (Protonix Ec Tab) 40 mg PO DAILY [facility] Last Admin: 11/03/18 09:40 Dose: 40 mg Tamsulosin HCl (Flomax) 0.4 mg PO DAILY [facility] Last Admin: 11/03/18 09:38 Dose: 0.4 mg - Labs Labs: 11/02/18 00:59 11/02/18 00:59 PT 12.1 Seconds (9.8-13.1) 11/02/18 19:06 INR 1.1 11/02/18 19:06 APTT 35.1 Seconds (25.6-37.1) 11/02/18 19:06 Assessment and Plan (1) Chest pain Status: Acute (2) Shingles Status: Acute
[2018-11-04] MEDS: Acyclovir 5% OINT 15 APPLIC/15 GM EXT SCH ×5 (01:09→13:12)
[2018-11-04] MEDS: Enoxaparin 40 mg Syringe SC SCH (07:59)
[2018-11-04] MEDS: Pantoprazole 40 mg EC Tab PO SCH (08:00)
[2018-11-04] MEDS: Bisacodyl 5mg EC Tab PO SCH (08:00)
[2018-11-04 13:58] VITALS: BP 121/74; PULSE 80; RESP 17; TEMP 98.2; O2SAT 93
--- NOTE | 2018-11-04 16:53 | PN ---
DATE: 11/04/2018 SUBJECTIVE: The patient denies any chest pain or shortness of breath. PHYSICAL EXAMINATION: VITAL SIGNS: Blood pressure 124/79, heart rate 77, temperature 97.7, respirations 18. HEENT: Normocephalic. CHEST: Clear. HEART: S1 and S2, regular. EXTREMITIES: No edema. LABORATORY DATA: Today's blood sugars are 133 and 140 respectively. Official echocardiographic study report, normal ejection fraction, grade I abnormal relaxation pattern, moderate aortic insufficiency and mild mitral insufficiency. ASSESSMENT: 1. Chest pain, myocardial infarction is ruled out. 2. Moderate aortic insufficiency. 3. Herpes zoster involving right arm. 4. Hepatic steatosis. 5. Hypertension. RECOMMENDATIONS: Continue aspirin 81 mg once a day, Cozaar 100 mg once a day, Lasix 40 mg once a day, Lopressor 50 mg twice a day, Zovirax 800 mg t.i.d., besides Zovirax ointment. The patient can be discharged from a cardiac point of view to be scheduled for a treadmill stress test as an outpatient. Brett Martin MD
== END 2018-11-04 14:50 | disposition home or self-care (01) ==
LOC: H.ER 23:18 → H.ERHOLD 11-02 01:10 → INTOOBSV 11-02 01:10 → H.TEL 11-02 03:22
PROVIDERS: ADMIT Family Medicine; ATTEND Family Medicine
DX: R07.89 Other chest pain (principal); Z90.49 Acquired absence of other specified parts of digestive tract; I12.9 Hypertensive chronic kidney disease with stage 1 through stage 4 chronic kidney disease, or unspecified chronic kidney disease; N18.9 Chronic kidney disease, unspecified; E11.22 Type 2 diabetes mellitus with diabetic chronic kidney disease; B02.9 Zoster without complications; K76.0 Fatty (change of) liver, not elsewhere classified; E11.65 Type 2 diabetes mellitus with hyperglycemia; E78.00 Pure hypercholesterolemia, unspecified; E78.5 Hyperlipidemia, unspecified; I35.1 Nonrheumatic aortic (valve) insufficiency; J44.9 Chronic obstructive pulmonary disease, unspecified; N28.89 Other specified disorders of kidney and ureter; Z87.01 Personal history of pneumonia (recurrent); Z87.891 Personal history of nicotine dependence
CPT/HCPCS: 36415; 71045; 76705; 80053; 82948; 83036; 83880; 84484; 85025; 85378; 85610; 85730; 93005; 93306; 99284; G0378; J1650